=== PATIENT | female | born 1970 ===

== ENCOUNTER 2021-02-24 17:34 | Emergency (ER) | payer OTHER ==
[~2021-02-24] VITALS: Ht 152.4 cm; Wt 75.7 kg
[2021-02-24] MEDS ORDERED: MORPHINE SULFATE 4 MG/ML SYR/VIAL IV ONE (18:30)
[2021-02-24] MEDS ORDERED: ONDANSETRON HCL 4 MG/2 ML VIAL IV ONE (18:30)
[2021-02-24 19:21] VITALS: BP 129/88
== END 2021-02-24 19:20 | disposition home or self-care (01) ==
LOC: EDBD 17:34 → ER 17:34
DX: S43.102A Unspecified dislocation of left acromioclavicular joint, initial encounter (principal); S80.12XA Contusion of left lower leg, initial encounter; S16.1XXA Strain of muscle, fascia and tendon at neck level, initial encounter; S96.911A Strain of unspecified muscle and tendon at ankle and foot level, right foot, initial encounter; Z90.710 Acquired absence of both cervix and uterus; V43.52XA Car driver injured in collision with other type car in traffic accident, initial encounter; Y93.89 Activity, other specified; Y92.410 Unspecified street and highway as the place of occurrence of the external cause; Y99.8 Other external cause status
CPT/HCPCS: 29105; 70450; 72125; 73030; 73552; 73620; 96374; 96375; 99285; J2270; J2405